=== PATIENT | female | born 1995 | race Two or more races ===

== ENCOUNTER 2019-02-06 17:29 | Emergency (ER) | payer MEDICAID ==
[~2019-02-06] VITALS: Ht 180.3 cm; Wt 99.8 kg
[2019-02-06 17:56] VITALS: BP 126/75
--- NOTE | 2019-02-06 17:57 | NUR ---
ED Nurse Note: Patient walked in to ER from home due to Lt lower back pain 8/ that radiates to Lt leg. Patient is alert and oriented x4 and ambulatory. Skin clean and intact. Calm and cooperative. No acute distress noted at this moment.
--- NOTE | 2019-02-06 17:58 | NUR ---
ED Nurse Note: pt reported she is 5 months .
[2019-02-06 18:41] LABS: APPEARANCE,URINE CLEAR; BILIRUBIN, URINE NEGATIVE (NEGATIVE); COLOR,URINE BROWN; GLUCOSE, URINE (UA) 2+ (NEGATIVE); KETONES,URINE 2+ (NEGATIVE); LEUKOCYTE ESTERASE ,URINE 1+ (NEGATIVE); NITRITE,URINE NEGATIVE (NEGATIVE); PH,URINE 5 (4.5-8.0); PROTEIN,URINE 1+ (NEGATIVE); UROBILINOGEN,URINE NORMAL MG/DL (0.0-1.0)
--- NOTE | 2019-02-06 18:53 | NUR ---
ED Nurse Note: ERPA at bedside.
--- NOTE | 2019-02-06 19:00 | Emergency Room Report ---
History of Present Illness General Chief Complaint: Pain Source: Patient Present Illness HPI 23-year-old female 5 months and here complaining of 2 days of left leg pain that started in her buttocks and now radiating to lower leg. Patient reports that the pain is worse when sitting down and trying to stand up. Patient reports less pain when walking. Rating pain 7 out of 10 has taken Tylenol with minimal relief. Patient reports that she last saw her [facility] 3 days ago had an ultrasound done and blood work and everything was within normal limits. Patient denies any abdominal pain, cramping, vaginal discharge or spotting. Denies dysuria however complains of urinary frequency. Denies fever and chills, chest pain, shortness of breath, palpitation, no other associated symptoms. Denies saddle paresthesia, fall or injury, tingling and numbness. Denies urinary bowel incontinence. Pain is localized to the left buttocks radiating to left lower leg denies lumbar pain. Allergies: Coded Allergies: BENAZEPRIL (Verified Allergy, Unknown, 02/06/19) PENICILLINS (Verified Allergy, Unknown, 02/06/19) Patient History Past Medical History: see triage record Past Surgical History: unable to obtain Pertinent Family History: none Now: Yes Immunizations: UTD Reviewed Nursing Documentation: PMH: Agreed; PSxH: Agreed Nursing Documentation-PMH Past Medical History: No History, Except For Hx Cardiac Problems: No - eczema Hx Hypertension: Yes Hx Asthma: Yes Hx Diabetes: Yes Review of Systems All Other Systems: negative except mentioned in HPI Physical Exam Vital Signs Date Time Temp Pulse Resp B/P (MAP) Pulse Ox O2 Delivery O2 Flow Rate FiO2 02/06/19 17:39 97.5 98 18 126/75 (92) 97 Room Air Sp02 EP Interpretation: reviewed, normal General Appearance: no apparent distress, alert, GCS 15, non-toxic Head: normocephalic, atraumatic Eyes: bilateral eye normal inspection, bilateral eye PERRL ENT: hearing grossly normal, normal pharynx, no angioedema, normal voice Neck: full range of motion, supple/symm/no masses Respiratory: chest non-tender, lungs clear, normal breath sounds, speaking full sentences Cardiovascular #1: regular rate, rhythm, no edema, no murmur Gastrointestinal: normal bowel sounds, non tender, soft, non-distended, no guarding, no rebound, other - gravid Genitourinary: normal inspection, no CVA tenderness Musculoskeletal: back normal, gait/station normal, normal range of motion, non- tender, other - positive left straight leg test Neurologic: normal inspection, alert, oriented x3 Psychiatric: judgement/insight normal, memory normal, mood/affect normal, no suicidal/homicidal ideation Skin: no rash Lymphatic: no adenopathy Medical Decision Making PA Attestation All my diagnosis and treatment plans were reviewed ad discussed with my supervising physician Dr. Rangel Diagnostic Impression: Primary Impression: Sciatic pain ER Course 23-year-old female 5 months and here complaining of 2 days of left leg pain that started in her buttocks and now radiating to lower leg. Patient reports that the pain is worse when sitting down and trying to stand up. Patient reports less pain when walking. Rating pain 7 out of 10 has taken Tylenol with minimal relief. Patient reports that she last saw her [facility] 3 days ago had an ultrasound done and blood work and everything was within normal limits. Patient denies any abdominal pain, cramping, vaginal discharge or spotting. Denies dysuria however complains of urinary frequency. Denies fever and chills, chest pain, shortness of breath, palpitation, no other associated symptoms. Denies saddle paresthesia, fall or injury, tingling and numbness. Denies urinary bowel incontinence. Pain is localized to the left buttocks radiating to left lower leg denies lumbar pain. Ddx considered but are not limited to: Lumbar spine sprain, strain, fracture, contusion, neuropathy, sciatic pain Vital signs: are WNL, pt. is afebrile H&PE are most consistent with: Sciatic pain ORDERS: UA, Tylenol ER intervention: None DISCHARGE: At this time pt. is stable for d/c to home. Will provide printed patient care instructions, and any necessary prescriptions. Care plan and follow up instructions have been discussed with the patient prior to discharge. Patient to follow-up with [facility] for further assessment at this time since patient is asymptomatic no abdominal cramping or vaginal spotting no OB work-up needed. Patient cannot take anything but Tylenol. Patient agrees with the above treatment. Last Vital Signs Date Time Temp Pulse Resp B/P (MAP) Pulse Ox O2 Delivery O2 Flow Rate FiO2 02/06/19 17:56 97.5 71 18 126/75 97 Room Air Disposition: HOME, SELF-CARE Condition: Stable Scripts Acetaminophen* (ACETAMINOPHEN EXTRA STRENGTH*) 500 Mg Tablet 1000 MG ORAL Q6H, #20 TAB 0 Refills Prov: Michele Alford 02/06/19 Referrals: [facility]ERR[facility] (PCP) Patient Instructions: Sciatica, [id number] Additional Instructions: Take medication as directed follow-up with your primary care provider and your [facility] if worsening symptoms return to the Michele Alford Feb 06, 2019 19:00
[2019-02-06] MEDS ORDERED: ACETAMINOPHEN500 M3 ORAL (19:01)
[2019-02-06 19:10] VITALS: BP 126/75
--- NOTE | 2019-02-06 19:10 | NUR ---
ED Nurse Note: Pt cleared by health care Provider for discharge. DC instructions/prescription was given and explained to pt and verbalized understanding of teachings. All medical deviecs such as ID band removed. Pt is AAO x4, ambulatory and left with all personal belongings.
== END 2019-02-06 19:10 | disposition home or self-care (01) ==
LOC: EMR 17:50
DX: O26.892 Other specified pregnancy related conditions, second trimester (principal); Z3A.00 Weeks of gestation of pregnancy not specified; M54.32 Sciatica, left side; Z88.8 Allergy status to other drugs, medicaments and biological substances; Z88.0 Allergy status to penicillin; I10 Essential (primary) hypertension; E11.9 Type 2 diabetes mellitus without complications; J45.909 Unspecified asthma, uncomplicated
CPT/HCPCS: 81001; Z7502; 99282